=== PATIENT | male | born 1975 | race Caucasian/White ===

== ENCOUNTER 2022-05-22 10:57 | Emergency (ER) | payer SELFPAY ==
--- NOTE | 2022-05-22 10:57 | NUR ---
[place] [facility] AT BEDSIDE
--- NOTE | 2022-05-22 11:03 | NUR ---
PT LEFT WITHOUT BEING TRIAGED.
--- NOTE | 2022-05-22 11:03 | NUR ---
PT UPSET WITH PD TALKING WITH HIM LEFT. PATIENT LEFT WITHOUT BEING SEEN BY DR. HOUSTON. NO FURTHER CARE PROVIDED FOR PATIENT.
== END 2022-05-22 11:03 | disposition left against medical advice (07) ==
LOC: MED 10:57
DX: R51.9 Headache, unspecified (principal); Z53.21 Procedure and treatment not carried out due to patient leaving prior to being seen by health care provider